=== PATIENT | female | born 1985 | race Caucasian/White ===

== ENCOUNTER 2018-01-10 20:30 | Emergency (ER) | payer BC ==
[2018-01-10 21:21] LABS: #Basophils 0.1 thou/uL (0.0-0.2); #Eosinphils 0.1 thou/uL (0.0-0.7); #Lymphocytes 3.1 thou/uL (1.20-3.40); #Monocytes 0.4 thou/uL (0.11-0.59); #Neutrophils 5.3 thou/uL (1.40-6.50); %Basophils 0.8 % (0.0-1.0); %Eosinophils 1.4 % (0.0-10.0); %Lymphocytes 34.1 % (21.0-51.0); %Monocytes 4.9 % (0.0-10.0); %Neutrophils 58.8 % (42.0-75.0); Hemoglobin 12.3 g/dL (12.0-16.0); Mean Corpuscular HGB CONC 33.3 g/dL (32.0-36.0); Mean Corpuscular Hemoglobin 27.1 pg (27.0-31.0); Mean Corpuscular Volume 81.3 fl (81.0-99.0); Mean Platelet Volume 6.9 fL (7.4-10.4); Platelet Count 299 thou/uL (130-400); RBC Distribution Width 14.4 % (11.5-14.5); Red Blood Cell (RBC) Count 4.53 mill/uL (4.20-5.40); White Blood Cell (WBC) Count 9.1 thou/uL (4.8-10.8)
[2018-01-10 21:40] LABS: ALT (SGPT) 18 U/L (8-55); AST (SGOT) 17 U/L (5-34); Albumin 3.5 g/dL (3.5-5.0); Alkaline Phosphatase 79 U/L (40-150); Anion Gap 10 mmol/L (10-20); BUN (Urea Nitrogen) 16 mg/dL (7.0-18.7); Bilirubin, Total Less than 0.2 mg/dL (0.2-1.2); Calc. Creatinine Clearance 0 mL/min (70-130); Calcium 8.9 mg/dL (7.8-10.44); Carbon Dioxide 29 mmol/L (22-29); Chloride 104 mmol/L (98-107); Estimated GFR-MDRD 70; Globulin 2.5 g/dL (2.4-3.5); Glucose 95 mg/dL (70-105); Lipase 26 U/L (8-78); Potassium 3.8 mmol/L (3.5-5.1); Sodium 139 mmol/L (136-145)
[2018-01-10 21:53] LABS: Bilirubin Negative (Negative); Blood, Urine Negative (Negative); Clarity CLOUDY (Clear); Glucose, Urine (Dipstick) Negative (Negative); Leukocyte Small (Negative); Nitrite Negative (Negative); Protein, Urine (Dipstick) Negative (Neg-Trace); Urobilinogen 0.2 mg/dL (0.2-1.0)
[2018-01-10 21:54] LABS: Bacteria/HPF 1+ HPF (None Seen); Hyaline Casts/LPF 0-3 HYALINE CAST LPF (0-3 Hyaline); Pathc Cast-AUWi Flag 0.14 (0-2.49); RBC/HPF 0-3 HPF (0-3)
[2018-01-10] MEDS ORDERED: Ondansetron HCl/PF 4 MG/2 ML Vial ONE (23:03)
[2018-01-10 23:07] LABS: BHCG - Serum Negative (NEGATIVE); Pregs Control Background? CLEAR/WHITE (CLR/WHITE); Pregs Control Bar Appear? YES (CONTROL BAR)
[2018-01-10 23:11] LABS: Pregu Control Background? CLEAR/WHITE (CLR/WHITE); Pregu Control Bar Appear? YES (CONTROL BAR)
[2018-01-10 23:12] LABS: Pregnancy Test - Urine (BHCG) Negative (Negative)
[2018-01-10] MEDS ORDERED: Morphine 4 MG/ML VIAL ONE (23:38)
--- NOTE | 2018-01-10 23:50 | ULT ---
RIGHT UPPER ABDOMINAL ULTRASOUND: 01/10/18 COMPARISON: None. HISTORY: Right upper quadrant abdominal pain for three days. TECHNIQUE: Multiplanar frias scale and color doppler images were obtained in a right upper quadrant abdominal ult rasound. FINDINGS: The liver is normal in echogenicity without focal lesions or intrahepatic ductal dilatation. The gall bladder is normal without stones, sludge, gallbladder wall thickening, or pericholecystic fluid. The common bile duct is normal measuring 3 mm. The pancreas could not be visualized adequately. The right kidney is normal in echogenicity without h ydronephrosis or calculus and measures 9.2 cm in length. IMPRESSION: Unremarkable exam. POS: [facility]
[2018-01-11] MEDS ORDERED: Mag-Al 1200 mg/1200 mg/30 ML UDCUP ONE (01:15)
[2018-01-11] MEDS ORDERED: Lidocaine Viscous Sol 2% 15 ml UD Cup ONE (01:15)
[2018-01-11] MEDS ORDERED: Famotidine/PF 20 mg/2ml Vial ONE (01:15)
== END 2018-01-11 01:40 | disposition home or self-care (01) ==
LOC: ERS 20:30
DX: R10.13 Epigastric pain (principal); F17.210 Nicotine dependence, cigarettes, uncomplicated; Z71.6 Tobacco abuse counseling
CPT/HCPCS: 36415; 76705; 80053; 81003; 81015; 81025; 83605; 83690; 84703; 85025; 87077; 87086; 96361; 96374; 96375; 99406; J2270; J2405; S0028

== ENCOUNTER 2019-03-20 13:36 | Emergency (ER) | payer BC, SELFPAY | END 2019-03-20 14:45 | disposition home or self-care (01) | LOC: ERS 13:36 | DX: L03.313 Cellulitis of chest wall (principal); F17.210 Nicotine dependence, cigarettes, uncomplicated | CPT/HCPCS: 99282 ==

== ENCOUNTER 2020-03-26 23:58 | Emergency (ER) | payer SELFPAY ==
[2020-03-27] MEDS ORDERED: Acetaminophen 500 MG TAB ONE (02:01)
== END 2020-03-27 02:04 | disposition home or self-care (01) ==
LOC: ERS 23:58
DX: H91.93 Unspecified hearing loss, bilateral (principal); K58.9 Irritable bowel syndrome, unspecified; F17.210 Nicotine dependence, cigarettes, uncomplicated; Z79.899 Other long term (current) drug therapy
CPT/HCPCS: 99283

== ENCOUNTER 2020-05-05 06:42 | Emergency (ER) | payer SELFPAY ==
[2020-05-05 07:14] LABS: #Basophils 0.1 thou/uL (0.0-0.2); #Eosinphils 0.2 thou/uL (0.0-0.7); #Lymphocytes 3.4 thou/uL (1.20-3.40); #Monocytes 0.7 thou/uL (0.11-0.59); #Neutrophils 5.7 thou/uL (1.40-6.50); %Basophils 0.7 % (0.0-1.0); %Lymphocytes 33.4 % (21.0-51.0); %Monocytes 7.4 % (0.0-10.0); %Neutrophils 56.5 % (42.0-75.0); Mean Corpuscular HGB CONC 32.6 g/dL (32.0-36.0); Mean Corpuscular Hemoglobin 28.3 pg (27.0-31.0); Mean Corpuscular Volume 86.9 fL (78.0-98.0); Mean Platelet Volume 8.9 fL (7.4-10.4); Platelet Count 316 thou/uL (130-400); RBC Distribution Width 12.8 % (11.5-14.5); Red Blood Cell (RBC) Count 4.94 mill/uL (4.20-5.40); White Blood Cell (WBC) Count 10.1 thou/uL (4.8-10.8)
[2020-05-05 07:19] LABS: BHCG - Serum Negative (NEGATIVE); Pregs Control Background? CLEAR/WHITE (CLR/WHITE); Pregs Control Bar Appear? YES (CONTROL BAR)
[2020-05-05 07:36] LABS: ALT (SGPT) 7 U/L (8-55); AST (SGOT) 17 U/L (5-34); Albumin 4.2 g/dL (3.5-5.0); Alkaline Phosphatase 86 U/L (40-110); Anion Gap 16 mmol/L (10-20); BUN (Urea Nitrogen) 13 mg/dL (7.0-18.7); Bilirubin, Total 0.4 mg/dL (0.2-1.2); Calc. Creatinine Clearance 0 mL/min (70-130); Calcium 9.9 mg/dL (7.8-10.44); Carbon Dioxide 22 mmol/L (22-29); Chloride 104 mmol/L (98-107); Estimated GFR-MDRD 67; Globulin 3.8 g/dL (2.4-3.5); Glucose 98 mg/dL (70-105); Lipase 16 U/L (8-78); Potassium 4.5 mmol/L (3.5-5.1); Sodium 137 mmol/L (136-145)
[2020-05-05 07:37] LABS: Bilirubin Negative (Negative); Blood, Urine Negative (Negative); Clarity Turbid (Clear); Glucose, Urine (Dipstick) Normal (Negative); Ketone, Urine Negative (Negative); Leukocyte 500 Leu/uL (Negative); Nitrite Negative (Negative); Protein, Urine (Dipstick) Negative (Neg-Trace); RBC/HPF 0-3 HPF (0-3); Specific Gravity, Urine 1.022 (1.002-1.036); Urobilinogen Normal mg/dL (Less than 2); pH, Urine 5.5 (5.0-9.0)
[2020-05-05] MEDS ORDERED: Ondansetron PF 4 MG/2 ML Vial ONE ×2 (07:45→09:07)
--- NOTE | 2020-05-05 07:54 | ULT ---
EXAM: US Gallbladder RUQ CLINICAL HISTORY: Pain.. COMPARISON: 03/08/2020 FINDINGS: Pancreas: Obscured by bowel gas Liver:Increased parenchymal echotexture due to hepatic steatosis or hepatocellular disease. Subsequen t limited evaluation for hepatic masses and intrahepatic biliary dilatation Right hepatic lobe: 16.3 cm Gallbladder: No sonographic evidence of cholelithiasis, gallbladder wall thickening or pericholecysti c fluid. Negro's sign:Negative Portal Vein: Patent. Appropriate directional flow Bile ducts: Poorly defined Right kidney: No hydronephrosis. Right kidney measures 10 cm in length. IMPRESSION: 1. No sonographic evidence of cholelithiasis or cholecystitis 2. Hepatic steatosis versus hepatocellular disease. 3. Limited evaluation the common bile duct.
[2020-05-05 07:59] LABS: Bacteria/HPF 1+ HPF (None Seen)
== END 2020-05-05 10:15 | disposition home or self-care (01) ==
LOC: ERS 06:42
DX: R10.11 Right upper quadrant pain (principal); R10.816 Epigastric abdominal tenderness; K58.9 Irritable bowel syndrome, unspecified; F17.210 Nicotine dependence, cigarettes, uncomplicated; Z79.899 Other long term (current) drug therapy
CPT/HCPCS: 76705; 80053; 81003; 81015; 83605; 83690; 84703; 85025; 96361; 96372; 96374; J0500; J2405

== ENCOUNTER 2020-08-17 17:48 | Emergency (ER) | payer SELFPAY ==
--- NOTE | 2020-08-17 19:38 | RAD ---
THREE VIEWS OF THE LEFT FOOT: 08/17/20 COMPARISON: None. HISTORY: Fall, trauma, pain. FINDINGS: There is enthesophyte formation at the origin of the plantar aponeurosis and in the insertion of the Achilles tendon. No displaced fracture or evidence of dislocation is seen. IMPRESSION: No acute fracture or evidence of dislocation. If symptoms persists, MRI may be beneficial. POS: [facility]
== END 2020-08-17 19:40 | disposition home or self-care (01) ==
LOC: ERS 17:48
DX: S90.32XA Contusion of left foot, initial encounter (principal); K58.9 Irritable bowel syndrome, unspecified; F17.210 Nicotine dependence, cigarettes, uncomplicated; W18.2XXA Fall in (into) shower or empty bathtub, initial encounter

== ENCOUNTER 2020-09-21 18:41 | Emergency (ER) | payer SELFPAY ==
[~2020-09-21 18:41] MED LIST: Iopamidol-370 76% 500 ML 1 ML ONE
[2020-09-21 19:28] LABS: #Basophils 0.1 thou/uL (0.0-0.2); #Eosinphils 0.1 thou/uL (0.0-0.7); #Lymphocytes 2.6 thou/uL (1.20-3.40); #Monocytes 0.4 thou/uL (0.11-0.59); #Neutrophils 5.9 thou/uL (1.40-6.50); %Basophils 0.8 % (0.0-1.0); %Eosinophils 1.6 % (0.0-10.0); %Lymphocytes 28.6 % (21.0-51.0); %Monocytes 3.9 % (0.0-10.0); %Neutrophils 65.1 % (42.0-75.0); Hemoglobin 12.7 g/dL (12.0-16.0); Mean Corpuscular HGB CONC 33.8 g/dL (32.0-36.0); Mean Corpuscular Hemoglobin 29.1 pg (27.0-31.0); Mean Corpuscular Volume 86.2 fL (78.0-98.0); Mean Platelet Volume 7.8 fL (7.4-10.4); Platelet Count 298 thou/uL (130-400); RBC Distribution Width 12.8 % (11.5-14.5); Red Blood Cell (RBC) Count 4.35 mill/uL (4.20-5.40); White Blood Cell (WBC) Count 9.1 thou/uL (4.8-10.8)
[2020-09-21 19:36] LABS: Bilirubin Negative (Negative); Blood, Urine 3+ (Negative); Clarity Turbid (Clear); Glucose, Urine (Dipstick) Normal (Negative); Ketone, Urine Negative (Negative); Leukocyte 75 Leu/uL (Negative); Nitrite Negative (Negative); Protein, Urine (Dipstick) 20 mg/dL (Neg-Trace); RBC/HPF Greater than 50 HPF (0-3); Specific Gravity, Urine 1.012 (1.002-1.036); Squamous Epithelial 0-3 HPF (0-3); Urobilinogen Normal mg/dL (Less than 2); WBC/HPF 0-3 HPF (0-3)
[2020-09-21 19:38] LABS: Bacteria/HPF 1+ HPF (None Seen)
[2020-09-21 19:49] LABS: ALT (SGPT) 8 U/L (8-55); AST (SGOT) 13 U/L (5-34); Alkaline Phosphatase 81 U/L (40-110); Anion Gap 14 mmol/L (10-20); BUN (Urea Nitrogen) 13 mg/dL (7.0-18.7); Bilirubin, Total 0.2 mg/dL (0.2-1.2); Calc. Creatinine Clearance 0 mL/min (70-130); Calcium 9.4 mg/dL (7.8-10.44); Carbon Dioxide 24 mmol/L (22-29); Chloride 104 mmol/L (98-107); Globulin 3.2 g/dL (2.4-3.5); Glucose 87 mg/dL (70-105); Lipase 19 U/L (8-78); Protein, Total 7.2 g/dL (6.0-8.3); Sodium 138 mmol/L (136-145)
--- NOTE | 2020-09-21 19:53 | ULT ---
US Gallbladder RUQ History: Abdominal pain Comparison: Gallbladder ultrasound May 05, 2020 Findings: Real-time grayscale and color evaluation right upper quadrant of the abdomen was performed. Visualized portion of the aorta and IVC are unremarkable. Portal vein is patent with antegrade flow. Liver measures 15.2 cm in length. Common bile duct is normal measuring 3 mm. Gallbladder wall thickness is normal. No pericholecystic f luid. Right kidney measures 8.6 x 3.2 x 4.1 cm without mass, hydronephrosis or abnormal calcifications. Likely a less than 5 mm polyp versus focal sludge. Impression: No cholelithiasis or cholecystitis. No intrahepatic biliary dilatation.
[2020-09-21] MEDS ORDERED: Ondansetron ODT 4 MG TAB ONE (20:08)
[2020-09-21] MEDS ORDERED: Ondansetron PF 4 MG/2 ML Vial ONE (21:58)
[2020-09-21] MEDS ORDERED: Morphine 4 MG/ML VIAL ONE (21:58)
--- NOTE | 2020-09-21 22:53 | CT ---
CT Abdomen Pelvis W Con History: Abdominal pain Comparison: Gallbladder ultrasound same day Findings: Lung bases are clear. No pericardial effusion. Normal proximal small bowel rotation. Likely small polyp of the base of the gallbladder. The liver, spleen, pancreas are unremarkable. No hydronephrosis. Multiple nabothian cysts of the cervix. The appendix is visualized and is normal. No retroperitoneal periaortic adenopathy. Adrenal glands are normal. Celiac trunk and superior mesenteric arteries are patent. No free intraperitoneal gas or fluid. Clips are seen along both fallopian tubes. Small right adnexal hypodensity measures 2 cm. No adjacent free fluid. No osseous abnormality Impression: 1. No acute inflammatory process within the abdomen or pelvis. 2. Normal appendix.
== END 2020-09-21 23:52 | disposition home or self-care (01) ==
LOC: ERS 18:41
DX: R10.11 Right upper quadrant pain (principal); R10.31 Right lower quadrant pain; R11.2 Nausea with vomiting, unspecified; F17.210 Nicotine dependence, cigarettes, uncomplicated
CPT/HCPCS: 36415; 74177; 76705; 80053; 81003; 81015; 83690; 85025; 96374; 96375; J2270; J2405; Q0162; Q9967

== ENCOUNTER 2021-08-15 07:46 | Emergency (ER) | payer SELFPAY ==
[2021-08-15] MEDS ORDERED: Ketorolac Tromethamine 30 MG/ML VIAL ONE (08:43)
== END 2021-08-15 09:51 | disposition home or self-care (01) ==
LOC: ERS 07:46
DX: M72.2 Plantar fascial fibromatosis (principal)
CPT/HCPCS: 96372; J1885

== ENCOUNTER 2022-04-25 12:53 | Emergency (ER) | payer SELFPAY ==
[2022-04-25 13:22] LABS: #Eosinphils 0.2 thou/uL (0.0-0.7); #Lymphocytes 2.6 thou/uL (1.20-3.40); #Monocytes 0.5 thou/uL (0.11-0.59); #Neutrophils 6.2 thou/uL (1.40-6.50); %Basophils 0.3 % (0.0-1.0); %Eosinophils 1.9 % (0.0-10.0); %Lymphocytes 27.5 % (21.0-51.0); %Monocytes 5.5 % (0.0-10.0); %Neutrophils 64.8 % (42.0-75.0); Hemoglobin 12.5 g/dL (12.0-16.0); Mean Corpuscular HGB CONC 32.5 g/dL (32.0-36.0); Mean Corpuscular Volume 86.4 fL (78.0-98.0); Mean Platelet Volume 8.1 fL (7.4-10.4); Platelet Count 271 thou/uL (130-400); Red Blood Cell (RBC) Count 4.45 mill/uL (4.20-5.40); White Blood Cell (WBC) Count 9.6 thou/uL (4.8-10.8)
[2022-04-25 13:44] LABS: ALT (SGPT) Less than 7 U/L (8-55); AST (SGOT) 12 U/L (5-34); Albumin 3.6 g/dL (3.5-5.0); Alkaline Phosphatase 90 U/L (40-110); Anion Gap 12 mmol/L (10-20); BUN (Urea Nitrogen) 13 mg/dL (7.0-18.7); Bilirubin, Total 0.3 mg/dL (0.2-1.2); Calc. Creatinine Clearance 0 mL/min (70-130); Calcium 9.4 mg/dL (7.8-10.44); Carbon Dioxide 25 mmol/L (22-29); Chloride 107 mmol/L (98-107); Estimated GFR 86; Globulin 3.1 g/dL (2.4-3.5); Glucose 89 mg/dL (70-105); Potassium 3.9 mmol/L (3.5-5.1); Protein, Total 6.7 g/dL (6.0-8.3); Sodium 140 mmol/L (136-145)
[2022-04-25] MEDS ORDERED: Acetaminophen 500 MG TAB ONE (14:07)
[2022-04-25] MEDS ORDERED: Ondansetron ODT 4 MG TAB ONE (14:09)
[2022-04-25] MEDS ORDERED: Ketorolac Tromethamine 30 MG/ML VIAL ONE (14:30)
[2022-04-25 14:40] LABS: Bilirubin Negative (Negative); Blood, Urine Negative (Negative); Clarity Clear (Clear); Glucose, Urine (Dipstick) Normal (Negative); Ketone, Urine Negative (Negative); Leukocyte Negative Leu/uL (Negative); Nitrite Negative (Negative); Pregnancy Test - Urine (BHCG) Negative (Negative); Protein, Urine (Dipstick) Negative (Neg-Trace); Urobilinogen Normal mg/dL (Less than 2); pH, Urine 5.5 (5.0-9.0)
[2022-04-25 14:41] LABS: Pregu Control Background? CLEAR/WHITE (CLR/WHITE); Pregu Control Bar Appear? YES (CONTROL BAR)
== END 2022-04-25 15:40 | disposition home or self-care (01) ==
LOC: ERS 12:53
DX: R10.32 Left lower quadrant pain (principal); R30.0 Dysuria; F17.210 Nicotine dependence, cigarettes, uncomplicated
CPT/HCPCS: 36415; 51701; 74176; 80053; 81003; 81025; 85025; 96372; J1885; Q0162